=== PATIENT | male | born 1970 | race Caucasian/White ===

== ENCOUNTER 2023-12-21 20:41 | Emergency (ER) | payer BC, OTHER ==
[2023-12-21 20:48] VITALS: BP 111/77; PULSE 86; RESP 20; TEMP 98.6; BMI 32.5
[2023-12-21] MEDS ORDERED: CEFTRIAXONE 1 GM/50 ML BAG ONE (22:48)
[2023-12-21] MEDS ORDERED: KETOROLAC TROMETHAMINE 30 MG/1 ML VIAL ONE (22:51)
[2023-12-21] MEDS: KETOROLAC TROMETHAMINE 30 MG/1 ML VIAL IVPUSH ONE (22:54)
[2023-12-21] MEDS: CEFTRIAXONE 1 GM in DEXTROSE 5%-WATER - 100 ML IVPB ONE (22:55)
== END 2023-12-21 23:56 | disposition home or self-care (01) ==
LOC: JERFT 20:41
PROC: 0H98XZZ Drainage of Buttock Skin, External Approach (ICD-10-PCS; principal; 2023-12-21)
PROC: 3E03329 Introduction of Other Anti-infective into Peripheral Vein, Percutaneous Approach (ICD-10-PCS; 2023-12-21)
PROC: 3E0333Z Introduction of Anti-inflammatory into Peripheral Vein, Percutaneous Approach (ICD-10-PCS; 2023-12-21)
DX: L02.31 Cutaneous abscess of buttock (principal); L03.317 Cellulitis of buttock; M79.18 Myalgia, other site
CPT/HCPCS: 99284-25